=== PATIENT | female | born 1990 | race Caucasian/White ===

== ENCOUNTER 2017-03-18 12:06 | Emergency (ER) | payer OTHER ==
[~2017-03-18] VITALS: Ht 165.1 cm; Wt 63.1 kg
[~2017-03-18 12:06] MED LIST: Motrin PO; NOHOMEMEDS; PRENATAL1 EACH PO; ZITHROMAX250 MG PO
[2017-03-18] MEDS ORDERED: VENTOLIN HFA18 GM IH (13:44)
[2017-03-18] MEDS ORDERED: PREDNISONE10 M1 PO (13:44)
[2017-03-18 14:01] VITALS: BP 122/62
== END 2017-03-18 14:03 | disposition home or self-care (01) ==
LOC: EME 12:06
DX: J02.8 Acute pharyngitis due to other specified organisms (principal); B97.89 Other viral agents as the cause of diseases classified elsewhere; R06.2 Wheezing; F17.200 Nicotine dependence, unspecified, uncomplicated; Z71.6 Tobacco abuse counseling; Z88.0 Allergy status to penicillin; Z88.1 Allergy status to other antibiotic agents
CPT/HCPCS: 87651 90; 99281; 99284